=== PATIENT | female | born 1960 | race Caucasian/White ===

== ENCOUNTER → 2016-12-14 | Outpatient (REF) ==
--- NOTE | 2016-12-15 01:45 | REP ---
Clinical: Pain and disability. Technique: AP, lateral, coned-down views of the lumbosacral spine. Findings: Lateral view demonstrates decreased height to the L1 vertebral body suggesting nonacute compression fracture primarily involving the superior endplate. Advanced degenerative disc osteophyte complex at the L5-S1 level includes hypertrophic facet changes, endplate sclerosis with disc space narrowing, and marginal osteophyte formation. Moderate multilevel degenerative changes are noted throughout the remainder of the lumbosacral spine. Impression: 1. Mild nonacute compression fracture at L1. 2. Early advanced degenerative disc osteophyte complex at L5-S1 with moderate degenerative changes throughout the remainder of the lumbosacral spine. Signed by Angel Beltran MD 12/15/2016 01:37 A
== END ==
LOC: M SMT 10:47
PROVIDERS: ATTEND Internal Medicine
DX: M51.9 Unspecified thoracic, thoracolumbar and lumbosacral intervertebral disc disorder (principal)